=== PATIENT | female | born 1960 | race Caucasian/White ===

== ENCOUNTER 2020-05-29 08:07 | Day surgery (SDC) | payer MEDICAID, SELFPAY ==
[~2020-05-29] VITALS: Ht 152.4 cm; Wt 63.5 kg
[2020-05-29] MEDS ORDERED: HYDROmorphone 1 MG INJ. 1 MG/ML AMPUL IVP PRN (10:00)
[2020-05-29] MEDS ORDERED: ACETAMINOPHEN 325 MG TABLET PO ONE (10:00)
[2020-05-29] MEDS ORDERED: METOCLOPRAMIDE HCL 10 MG/2 ML VIAL IVP PRN (10:00)
[2020-05-29] MEDS ORDERED: KETOROLAC TROMETHAMINE 30 MG VIAL ONE (11:00)
[2020-05-29] MEDS ORDERED: PROPOFOL 200MG/ 20ML VIAL (DIPRIVAN) IV ONE (11:00)
[2020-05-29] MEDS ORDERED: ROCURONIUM BROMIDE 10 MG/ML (ZEMURON) ONE (11:00)
[2020-05-29] MEDS ORDERED: SEVOFLURANE 15 MIN GAS INH ONE (11:00)
[2020-05-29] MEDS ORDERED: BUPIVACAINE /EPINEPHRINE/PF 0.5% 30 ML VIAL INJ ONE (11:00)
[2020-05-29] MEDS ORDERED: fentaNYL CITRATE/PF 100 MCG/2 ML AMP ONE (11:00)
[2020-05-29] MEDS ORDERED: LR 1,000 ML IV.SOLN IV ONE (11:00)
[2020-05-29] MEDS ORDERED: ONDANSETRON HCL 4 MG/2 ML VIAL ONE (11:00)
[2020-05-29] MEDS ORDERED: SUCCINYLCHOLINE CHLORIDE 20 MG/ML(QUELICIN) ONE (11:00)
[2020-05-29] MEDS ORDERED: NS IRRIG SOLN 1000 ML IR ONE (11:00)
[2020-05-29] MEDS ORDERED: HYDROmorphone 1 MG INJ. 1 MG/ML AMPUL ONE (11:13)
[2020-05-29 12:29] VITALS: BP_SYST 133
[2020-05-29] MEDS ORDERED: METOCLOPRAMIDE HCL 10 MG/2 ML VIAL ONE (15:07)
== END 2020-05-29 15:00 | disposition home or self-care (01) ==
LOC: SDS 08:07 → SMU 08:09 → SDS 15:00
PROVIDERS: ATTEND Obstetrics & Gynecology
DX: N83.202 Unspecified ovarian cyst, left side (principal); E11.9 Type 2 diabetes mellitus without complications; E78.5 Hyperlipidemia, unspecified; D64.9 Anemia, unspecified; Z20.828 Contact with and (suspected) exposure to other viral communicable diseases; Z79.4 Long term (current) use of insulin; Z88.8 Allergy status to other drugs, medicaments and biological substances; Z91.010 Allergy to peanuts; Z79.899 Other long term (current) drug therapy
CPT/HCPCS: 58661; 82962; 88305; C1727; J0330; J1170; J1885; J2405; J2704; J2765; J3010; J3490; J7120; U0003

== ENCOUNTER 2020-06-15 17:16 | Emergency (ER) | payer MEDICAID, SELFPAY ==
[~2020-06-15] VITALS: Ht 152.4 cm; Wt 63.5 kg
[2020-06-15 17:27] VITALS: BP_SYST 110
[2020-06-15] MEDS ORDERED: CLINDAMYCIN 300 MG/50 ML D5W 50 ML IV ONE (18:15)
[2020-06-15] MEDS ORDERED: KETOROLAC TROMETHAMINE 30 MG VIAL IVP ONE (18:15)
[2020-06-15 19:18] LABS: BASOPHILS # (AUTO) 0.1 K/uL (0.0-0.2); BASOPHILS % (AUTO) 1.2 % (0.0-2.0); EOSINOPHILS # (AUTO) 0.3 K/uL (0.0-0.4); EOSINOPHILS % (AUTO) 4.9 % (0.0-4.0); HEMATOCRIT 32.7 % (36-48); HEMOGLOBIN 11.2 g/dL (12.0-16.0); LYMPHOCYTES # (AUTO) 2.4 K/uL (1.0-5.5); LYMPHOCYTES % (AUTO) 33.8 % (20.5-51.5); MEAN CORPUSCULAR HEMOGLOBIN 31 pg (27-31); MEAN CORPUSCULAR HGB CONC 34 % (32-36); MEAN CORPUSCULAR VOLUME 91 fL (79.0-98.0); MONOCYTES # (AUTO) 0.5 K/uL (0.0-1.0); NEUTROPHILS # (AUTO) 3.7 K/uL (1.8-7.7); NEUTROPHILS % (AUTO) 53.1 % (40.0-70.0); PLATELET COUNT (AUTO) 469 K/uL (130-430); RED BLOOD CELL COUNT(AUTO) 3.59 MIL/uL (4.2-6.2)
[2020-06-15 19:19] LABS: CREATININE 0.93 mg/dL (0.55-1.30); POTASSIUM 5.3 mmol/L (3.5-5.1)
[2020-06-15] MEDS ORDERED: CLINDAMYCIN 600 mg/50mL D5W 50 ML IV ONE ×2 (19:22→20:00)
[2020-06-15 19:25] LABS: ALBUMIN 3.4 g/dL (3.4-4.8)
[2020-06-15 19:45] LABS: TOTAL BILIRUBIN 0.2 mg/dL (0.0-1.0)
[2020-06-15 20:42] VITALS: BP_SYST 131
== END 2020-06-15 20:42 | disposition home or self-care (01) ==
LOC: SED 17:16
DX: L02.211 Cutaneous abscess of abdominal wall (principal)
CPT/HCPCS: 36415; 74177; 80053; 83605; 85025; 87040; 87075; 87070; 87186; 96365; 96375; 99285; J1885; J3490; Q9967

== ENCOUNTER 2021-12-13 21:28 | Emergency (ER) | payer MEDICAID ==
[~2021-12-13] VITALS: Ht 142.2 cm; Wt 77.1 kg
[2021-12-13 21:43] VITALS: BP_SYST 148
--- NOTE | 2021-12-13 22:01 | NUR ---
PT COMES IN WITH C/O RT BIG TOE REDNESS/SWELLING, INCREASING OVER THE LAST TWO DAYS, PT IS DIABETIC. DENIES FEVERS/CHILLS. NO TRAUMA TO FOOT OR TOE. DENIES ANY PAIN AT THIS TIME.
--- NOTE | 2021-12-13 22:41 | NUR ---
DR NEWMAN IN ROOM FOR EXAM.
[2021-12-13] MEDS: LIDOCAINE/EPI 1% 1:100000 20 ML VIAL INJ ONE (23:01)
--- NOTE | 2021-12-13 23:11 | NUR ---
I & D TRAY AT BEDSIDE, PT EXPLAINED PLAN OF TRAETMENT, VERBALIZED UNDERSTANDING
--- NOTE | 2021-12-13 23:20 | NUR ---
WOUND CARE PROVIDED, NON ADHERENT PAD, GAUZE, KERLIX. INSTRUCTIONS GIVEN.
[2021-12-13] MEDS ORDERED: SULF1TAB48 PO (23:22)
[2021-12-13] MEDS: DIPH-TET-PERTUS Vaccine 0.5 ML VIAL (ADACEL) I.M. ONE (23:29)
--- NOTE | 2021-12-13 23:54 | NUR ---
Patient given written and verbal discharge instructions and verbalizes understanding. ER MD discussed with patient the results and treatment provided. Patient in stable condition. ID arm band removed. I Rx of BACTRIM given. Patient educated on pain management and to follow up with PMD. Pain Scale . Opportunity for questions provided and answered. Medication side effect fact sheet provided.
[2021-12-13 23:56] VITALS: BP_SYST 148
== END 2021-12-13 23:56 | disposition home or self-care (01) ==
LOC: SED 21:28
DX: L03.031 Cellulitis of right toe (principal); E11.621 Type 2 diabetes mellitus with foot ulcer; Z79.899 Other long term (current) drug therapy
CPT/HCPCS: 90715; 99283

== ENCOUNTER 2022-04-15 14:52 | Emergency (ER) | payer MEDICAID ==
[~2022-04-15] VITALS: Ht 175.3 cm; Wt 63.5 kg
[~2022-04-15 14:52] MED LIST: SULF1TAB48 PO
[2022-04-15 15:06] VITALS: BP_SYST 115
--- NOTE | 2022-04-15 15:20 | NUR ---
RECEIVED PT FROM SIDDHARTHA HALE. PT HAS C/O AB PAIN, N/V X ONE TIME. PT IS AAOX4, RESP E/U. ON R/A. DENIES CONSTIPATION/DIARRHEA. ABDOMEN ROUND, NONDISTENDED. PT HAS C/O PAIN UPON URINATION AND FLANK PAIN. SIDERAIL UP X2.
--- NOTE | 2022-04-15 15:25 | NUR ---
DR. SWAN AT BEDSIDE TO ASSESS PT. IV CATH STARTED TO 22G.
[2022-04-15] MEDS ORDERED: NACL 0.9% 1,000 ML IV ONE (15:30)
[2022-04-15] MEDS ORDERED: ONDANSETRON HCL 4 MG/2 ML VIAL IVP ONE (15:30)
[2022-04-15 16:23] LABS: BASOPHILS # (AUTO) 0.1 K/uL (0.0-0.2); BASOPHILS % (AUTO) 0.5 % (0.0-2.0); EOSINOPHILS % (AUTO) 0.2 % (0.0-4.0); HEMATOCRIT 30.8 % (36-48); HEMOGLOBIN 10.3 g/dL (12.0-16.0); LYMPHOCYTES # (AUTO) 1.1 K/uL (1.0-5.5); LYMPHOCYTES % (AUTO) 9.1 % (20.5-51.5); MEAN CORPUSCULAR HEMOGLOBIN 29 pg (27-31); MEAN CORPUSCULAR HGB CONC 34 % (32-36); MEAN CORPUSCULAR VOLUME 86 fL (79.0-98.0); MONOCYTES # (AUTO) 0.9 K/uL (0.0-1.0); MONOCYTES % (AUTO) 7.3 % (1.7-9.3); NEUTROPHILS # (AUTO) 9.8 K/uL (1.8-7.7); NEUTROPHILS % (AUTO) 82.9 % (40.0-70.0); PLATELET COUNT (AUTO) 415 K/uL (130-430); RED BLOOD CELL COUNT(AUTO) 3.58 MIL/uL (4.2-6.2); RED CELL DISTRIBUTION WIDTH 13.1 % (9.0-15.0); WHITE BLOOD COUNT (AUTO) 11.8 K/uL (4.8-10.8)
--- NOTE | 2022-04-15 16:30 | NUR ---
IV fluids initated at 1530, discontinued at 1630.
[2022-04-15 16:57] LABS: ALBUMIN 2.5 g/dL (3.4-4.8); CALCIUM 8.7 mg/dL (8.4-11.0); POTASSIUM 4.8 mmol/L (3.5-5.1); TOTAL BILIRUBIN 0.3 mg/dL (0.0-1.0)
[2022-04-15 16:59] LABS: CREATININE 1.31 mg/dL (0.55-1.30)
--- NOTE | 2022-04-15 17:00 | NUR ---
URINE OBTAINED AND TAKEN TO LAB.
[2022-04-15] MEDS ORDERED: LIP10 PO (17:13)
[2022-04-15] MEDS ORDERED: FERR236T3 PO (17:13)
[2022-04-15] MEDS ORDERED: INSU100V42 SUBCUT (17:13)
--- NOTE | 2022-04-15 17:17 | NUR ---
Medication reconciliation completed with information provided by patient. Any prior medication reconciliation on file was reviewed and corrected.
[2022-04-15 17:24] LABS: BILIRUBIN,URINE NEGATIVE (NEGATIVE); BLOOD, URINE 2+ (NEGATIVE); CLARITY/URINE CLOUDY (CLEAR); COLOR,URINE YELLOW (YELLOW); GLUCOSE,URINE 2+ (NEGATIVE); KETONES,URINE NEGATIVE (NEGATIVE); LEUKOCYTE ESTERASE ,URINE 1+ (NEGATIVE); NITRITE, URINE NEGATIVE (NEGATIVE); PROTEIN URINE 3+ (NEGATIVE); UROBILINOGEN,URINE 0.2 (0.2-1.0)
[2022-04-15 17:35] LABS: BACTERIA,URINE MANY /HPF (None Seen); WBC,URINE >100 /HPF (0-3)
[2022-04-15] MEDS ORDERED: DEXTROSE 50% JECT 50 ML DISP.SYRIN IVP PRN (18:00)
[2022-04-15] MEDS ORDERED: cefTRIAXone 1 GM in D5W 50 ML IV ONE (18:00)
[2022-04-15] MEDS ORDERED: INSULIN REGULAR, HUMAN 100 UNITS/ML, 10 ML VIAL (humuLIN R) SUBCUT PRN (18:00)
[2022-04-15] MEDS ORDERED: D5W 1,000 ML IV PRN (18:00)
[2022-04-15] MEDS ORDERED: GLUCOSE (DEXTROSE) ORAL GEL -Adults PO PRN (18:00)
[2022-04-15] MEDS ORDERED: ACETAMINOPHEN 500 MG TABLET PO PRN (18:00)
[2022-04-15] MEDS ORDERED: MORPHINE 2 MG/ML INJ. SYRINGE IVP PRN (18:00)
--- NOTE | 2022-04-15 18:07 | NUR ---
COVID TEST/MUNA ADMNISTRED AND SAMPLE WAS DELIVERED TO LAB LAB[facility]
[2022-04-15] MEDS ORDERED: CEPH-548 PO (18:34)
[2022-04-15] MEDS ORDERED: cefTRIAXone 1 GM VIAL ONE (18:34)
[2022-04-15] MEDS ORDERED: ACET-2634 PO (18:34)
[2022-04-15] MEDS ORDERED: NIRM1TAB PO (18:55)
--- NOTE | 2022-04-15 19:02 | NUR ---
GONZÁLEZ GIVEN AT 183, ENDED AT 190
[2022-04-15 19:20] VITALS: BP_SYST 115
--- NOTE | 2022-04-15 19:21 | NUR ---
Patient given written and verbal discharge instructions and verbalizes understanding. ER MD discussed with patient the results and treatment provided. Patient in stable condition. ID arm band removed. Rx of Tylenol, Paxlovid, cephalexin given. Patient educated on pain management and to follow up with PMD. Pain Scale 0/10. Opportunity for questions provided and answered. Medication side effect fact sheet provided.
--- NOTE | 2022-04-17 14:00 | NUR ---
LAB REPORT RECEIVED FOR URINE CULTURE + E.COLI. PT RECEIVED ROCEPHIN DURING ER COURSE, WHICH C/S SHOWS SENSITIVITY TO. PER ER DR. CLARK, NO FURTHER ACTION IS REQUIRED AT THIS TIME
== END 2022-04-15 19:20 | disposition home or self-care (01) ==
LOC: SED 14:52
DX: U07.1 COVID-19 (principal); N39.0 Urinary tract infection, site not specified; E11.65 Type 2 diabetes mellitus with hyperglycemia; R73.9 Hyperglycemia, unspecified; E78.5 Hyperlipidemia, unspecified; Z79.899 Other long term (current) drug therapy
CPT/HCPCS: 99284; 96365; 71045; 96361; 96375; 87426; 80053; 81000; 82962; 83690; 85025; 87086; 36415; J0696; J1815; J2405; J7030